=== PATIENT | female | born 1960 | race Caucasian/White ===

== ENCOUNTER 2017-02-07 15:40 | Observation (INO) | payer OTHER, MEDICARE ==
--- NOTE | ~2017-02-07 | EKG ---
PATIENT: HOWIE STRONG UNIT #: [id number] Ventricular Rate: 55 BPM Atrial Rate: 55 BPM P-R Interval: 170 ms QRS Duration: 82 ms Q-T Interval: 422 ms QTC Calculation(Bezet): 403 ms P [place]: 46 degrees Calculated R [place]: 44 degrees Calculated T [place]: 30 degrees Diagnosis Line: Sinus bradycardia Diagnosis Line: Low voltage QRS Diagnosis Line: Borderline ECG Diagnosis Line: No previous ECGs available Diagnosis Line: Confirmed by IVANA ESCUDERO MD ([id number]) on Diagnosis Line: 02/09/2017 8:21:17 AM INTERPRETING MD: KENA SANDERS
--- NOTE | ~2017-02-07 | OR ---
Unit #: [id number] #: [id number] Patient: HOWIE STRONG [id number] [place], [place] [address] [id number] I MR#: [id number] NAME: HOWIE STRONG ROOM: [facility] Date of Procedure: 02/08/2017 Admission Date: 02/07/2017 Surgeon: Frank Daley M.D. : 1960 Attending Physician: Cisco León M.D. OPERATIVE REPORT PREOPERATIVE DIAGNOSES Chronic cholecystitis and cholelithiasis. POSTOPERATIVE DIAGNOSES Chronic cholecystitis and cholelithiasis. PROCEDURE PERFORMED Laparoscopic cholecystectomy. ANESTHESIA General endotracheal anesthesia. ESTIMATED BLOOD LOSS 40 mL. INDICATIONS FOR PROCEDURE Ms. Strong is a 57-year-old female from [place], who presented to [facility]. She was having increasing pain in the right upper quadrant with vomiting. She has had previous outpatient ultrasound, which showed cholelithiasis with normal biliary ductal system. The patient's preoperative laboratories were normal. She was afebrile and anicteric. DESCRIPTION OF PROCEDURE The patient was transported from her hospital room to the operating room, and after induction of general endotracheal anesthesia, she was prepped and draped in usual sterile fashion. A 1 cm infraumbilical incision was made. We dissected down through the soft tissue and opened the fascia under direct vision. Stay sutures were placed. The posterior sheath and peritoneum were opened and we entered into the peritoneal cavity under direct vision. I swept my index finger through the peritoneal cavity and there were no adhesions. Tish trocar was placed. Pneumoperitoneum was created. Laparoscope was introduced into peritoneal cavity. Under direct vision, the epigastric and lateral ports were placed. Adhesions in the right upper quadrant were taken down with sharp and cautery dissection and then the lateral ports were placed. Gallbladder was grasped and elevated. Adhesions were stripped away from the gallbladder and the infundibulum was identified and retracted laterally. [place] of [place] was dissected out clearly identifying the cystic duct, gallbladder, and cystic duct-common duct junction and the posteriorly placed cystic artery. The cystic duct was swept upwards. There were no stones and then a single clip was placed in the cystic duct as it entered the gallbladder. Three clips were placed distally on the cystic duct and the cystic duct was sharply divided. Unit #: [id number] #: [id number] Patient: HOWIE STRONG Posteriorly, the cystic artery was doubly clipped proximally and distally and then the gallbladder was dissected out of the liver bed using cautery dissection. There was no spillage of bile or stones and the gallbladder was brought out through the Tish trocar port. Pneumoperitoneum was recreated. We irrigated and suctioned the irrigant out until it was clear. There was good hemostasis and the clips were well positioned. The epigastric fascial defect was closed with the neoClose device and the closure was airtight. I then reduced the pneumoperitoneum and removed the laparoscope and trocars. The Tish trocar site was closed with 0 Vicryl interrupted sutures and then 0.5% Marcaine with epinephrine was infiltrated into each trocar site. The skin was closed with sterile skin varinder. Dry sterile dressing was placed. Sponges and needle counts were correct x3. The patient tolerated the procedure well and was transported to the recovery in stable condition. Findings and postoperative instructions were discussed with her family. Dictated by... Melody Ortez/alma TD: 02/08/2017 13:27 JOB #: [id number] OPERATIVE REPORT Page 1 of 1 X Frank Daley MD PROCEDURE OPERATIVE NOTE
--- NOTE | ~2017-02-07 | HP ---
Unit #: [id number] #: [id number] Patient: HOWIE STRONG [id number] [facility]. [place], [place] [address] [id number] MR#: [id number] NAME: HOWIE STRONG ROOM: [facility] Age: 57 Sex: F Admission Date: 02/07/2017 : 1960 Attending Physician: Cisco León M.D. HISTORY AND PHYSICAL HISTORY AND EXAM Ms. Strong is a 57-year-old female with a history of reflux sympathetic dystrophy who developed right-sided abdominal pain last week and had an outpatient ultrasound on that revealed cholelithiasis with no evidence of acute findings. Over the weekend she complained of sudden increase in pain and had some post prandial vomiting. She denied any fever, chills or jaundice. Her bowel movements remain normal. She came to ER at [place] on Tuesday because of her increased pain and was subsequently transferred here to [facility]. The patient continues to have persistent right-sided abdominal pain and nausea. She remains afebrile. PAST MEDICAL HISTORY She has had open appendectomy, total abdominal hysterectomy. She has had a colonoscopy with a large polyp in the left colon and underwent left colon resection. She has a history of reflux sympathetic dystrophy. She has had a pain pump placed, a spinal cord stimulator placed, a left total knee replacement, and a tonsillectomy and adenoidectomy. ALLERGIES No allergies to medication. CURRENT MEDICATIONS Lyssa aspirin, carisoprodol 350 mg q.i.d.; Klonopin 0.5 mg t.i.d.; fentanyl in her pain pump; MS Contin 60 mg 3 times a day; Prilosec 20 mg daily; oxycodone 30 mg q.4 hours; Crestor 20 mg at h.s. FAMILY HISTORY She is unaware of any chronic or inheritable diseases. SOCIAL HISTORY She smokes daily and is a social alcohol drinker. REVIEW OF SYSTEMS No fever, chills, or jaundice. She has had nonbloody vomiting or bowel movements. Her bowel movements remain normal. PHYSICAL EXAMINATION VITAL SIGNS: Temperature is 97.2, pulse 64 and regular, respirations 16, blood pressure 119/74. She is awake, alert and oriented in all spheres. HEENT: No carotid bruits. No scleral icterus. HEART: Regular rate and rhythm without murmur. LUNGS: Clear throughout. ABDOMEN: She guards in the right upper quadrant but there is no mass or Unit #: [id number] #: [id number] Patient: HOWIE STRONG rebound tenderness. EXTREMITIES: No clubbing, cyanosis or edema. NEUROLOGIC: Grossly intact. SKIN: No rashes or lesions. DIAGNOSTIC STUDIES LABORATORY STUDIES: Comprehensive metabolic panel and CBC are within normal limits. In particular her bilirubin is 0.5 and her amylase was normal. White count 6,100 with normal differential, hemoglobin 12.2, platelets 149,000. ASSESSMENT AND PLAN 57-year-old female with early acute cholecystitis. We plan on starting the patient on IV antibiotics and getting consent for laparoscopic cholecystectomy. I discuss laparoscopic cholecystectomy with patient including risks, benefits, and complications and the possibility of conversion to an open procedure, for which she is at an increased risk for due to previous surgery. She understands and agrees to proceed. Dictated by Melody Ortez/carmenza TD: 02/08/2017 07:53 JOB #: [id number] HISTORY AND PHYSICAL Page 1 of 1 X Frank Daley MD X HISTORY AND PHYSICAL
--- NOTE | ~2017-02-07 | DS ---
Unit #: [id number] #: [id number] Patient: HOWIE STRONG [id number] [address] [id number] I MR#: [id number] NAME: HOWIE STRONG. ROOM: [facility] Age: 57 Sex: F Admission Date: 02/07/2017 : 1960 Discharge Date: 02/09/2017 Attending Physician: Cisco León M.D. DISCHARGE SUMMARY DISCHARGE DIAGNOSIS Cholecystitis. PROCEDURE Laparoscopic cholecystectomy. HOSPITAL COURSE The patient is a 57-year-old lady who presented with cholecystitis. She was admitted to the hospital, hydrated and underwent laparoscopic cholecystectomy. Postoperative course was uncomplicated. DISPOSITION The patient is discharged home. CONDITION UPON DISCHARGE Good condition. DISCHARGE DIET She is to follow a regular diet as tolerated. ACTIVITY Activity levels were discussed. FOLLOW-UP She is to follow up with Dr. Pittman in 2 weeks. DISCHARGE MEDICATIONS Her regular home medications and Campbell 7.5 mg q.4 p.r.n. Dictated by... Melody Simmons/cirilo TD: 02/09/2017 11:25 JOB #: [id number] Unit #: [id number] #: [id number] Patient: HOWIE STRONG DISCHARGE SUMMARY Page 1 of 1 X Cisco León MD X DISCHARGE SUMMARY
[2017-02-07] MEDS ORDERED: BAYER CHEWABLE81 MG PO (20:51)
[2017-02-07] MEDS ORDERED: KLONOPIN0.5 MG PO (20:52)
[2017-02-07] MEDS ORDERED: SOMA PO (20:52)
[2017-02-07] MEDS ORDERED: FENTANYL (20:53)
[2017-02-07] MEDS ORDERED: MS CONTIN60 MG PO (20:53)
[2017-02-07] MEDS ORDERED: OXYCODONE HCL30 MG PO (20:54)
[2017-02-07] MEDS ORDERED: PRILOSEC PO (20:54)
[2017-02-07] MEDS ORDERED: CRESTOR10 MG PO (20:56)
[2017-02-08 02:49] LABS: BASOPHIL% 0.2 % (0-2.5); EOSINOPHIL# 0.1 X10e3 (0-0.7); EOSINOPHIL% 1.1 % (0.0-7.0); HEMATOCRIT 35.9 % (35.0-45.0); HEMOGLOBIN 12.2 gm/dL (12.0-16.0); LYMPHOCYTE# 2.8 X10e3 (1.0-3.5); LYMPHOCYTE% 45.7 % (17.0-45.0); MEAN CELL VOLUME 91.8 FL (83-96); MEAN CORPUSCULAR HEMOGLOBIN 31.1 PG (28-34); MEAN CORPUSCULAR HGB CONC 33.9 g/dL (30-36); MEAN PLATELET VOLUME 7.6 FL (6.5-11.5); MONOCYTE# 0.3 X10e3 (0-1.0); MONOCYTE% 5.1 % (3.0-12.0); NEUTROPHIL# 2.9 X10e3 (1.5-7.1); NEUTROPHIL% 47.9 % (40-75); PLATELET COUNT 149 X10e3 (140-420); RED BLOOD COUNT 3.91 X10e (3.90-5.30); RED CELL DISTRIBUTION WIDTH 13.2 % (11.0-15.5); WHITE BLOOD COUNT 6.1 X10e3 (4.0-10.5)
[2017-02-08 02:50] LABS: DIFF IND NO
[2017-02-08 03:16] LABS: ALBUMIN SERUM 3.3 g/dL (3.5-5.0); BILIRUBIN,TOTAL 0.5 mg/dL (0.2-2.0); BUN/CREATININE RATIO 11.42; CALCIUM SERUM 8.6 mg/dL (8.4-10.2); CREATININE SERUM 0.7 mg/dL (0.6-1.4); GLOM FILT RATE Estimated 97.5 mL/min (>60); POTASSIUM 3.9 mmol/L (3.5-5.1); PROTEIN TOTAL SERUM 5.9 g/dL (6.0-8.3)
[2017-02-09] MEDS ORDERED: NORCO 7.5-3251 EACH PO (08:15)
== END 2017-02-09 09:04 | disposition home or self-care (01) | DRG 446 ==
LOC: C4C 15:40
PROVIDERS: Surgery
DX: K80.10 Calculus of gallbladder with chronic cholecystitis without obstruction (principal); F17.200 Nicotine dependence, unspecified, uncomplicated
CPT/HCPCS: 80053; 85025; 88304; 93005; 96374; 96375; 96376; C9113; G0378; J0131; J1100; J1170; J1885; J2250; J2543; J2710; J2765